=== PATIENT | male | born 1975 | race Native Hawaiian/Other Pacific Islander ===

== ENCOUNTER 2021-05-30 09:13 | Emergency (ER) | payer OTHER ==
[~2021-05-30] VITALS: Ht 175.3 cm; Wt 158.8 kg
[2021-05-30 10:05] LABS: PLATELET COUNT 238 K/uL (142-355)
[2021-05-30 10:22] LABS: POTASSIUM 4.8 mmol/L (3.6-5.2)
[2021-05-30] MEDS ORDERED: AMLODIPINE BESYLATE PO (11:12)
[2021-05-30] MEDS ORDERED: LISI10TA11 PO (11:12)
== END 2021-05-30 12:22 | disposition expired ==
LOC: ED 09:21
PROVIDERS: Family Medicine
PROC: 0BH17EZ Insertion of Endotracheal Airway into Trachea, Via Natural or Artificial Opening (ICD-10-PCS; principal; 2021-05-30)
PROC: 5A12012 Performance of Cardiac Output, Single, Manual (ICD-10-PCS; 2021-05-30)
DX: I46.9 Cardiac arrest, cause unspecified (principal)
CPT/HCPCS: 31500; 36415; 80053; 82948; 84484; 85027; 92950; 96360; 96375; 96376; 99285; J0171; J0461; J3490